=== PATIENT | male | born 1965 | race Hispanic/Latino ===

== ENCOUNTER → 2024-11-28 | Outpatient (CLI) | payer OTHER, MEDICAID ==
--- NOTE | 2024-11-28 13:50 | HMCIMG ---
US VENOUS DOPPLER BILATERAL HISTORY: DVT COMPARISON: None TECHNIQUE: Bilateral upper extremity venous Doppler ultrasound study was performed. FINDINGS: The subclavian, axillary, and brachial veins are visualized. Normal flow with augmentation and compressibilities are demonstrated. The cephalic veins are also seen and grossly patent. IMPRESSION: 1. No evidence of deep venous thrombosis is seen.
== END | disposition home or self-care (01) ==
LOC: RAH 12:11
PROVIDERS: ATTEND Internal Medicine Medical Oncology
DX: Z86.718 Personal history of other venous thrombosis and embolism (principal); I82.629 Acute embolism and thrombosis of deep veins of unspecified upper extremity; R60.0 Localized edema
CPT/HCPCS: 93970